=== PATIENT | male | born 1985 | race Caucasian/White ===

== ENCOUNTER 2017-10-13 17:34 | Emergency (ER) | payer SELFPAY ==
--- NOTE | 2017-10-13 18:20 | EDPHY ---
H & P Time Seen by Provider: 10/13/17 17:43 HPI/ROS: Chief complaint. Right testicle pain HPI. 32-year-old male presents emergency department with 3 day history of upper right testicle pain. He initially noted pressure sensation where the scrotum joins the body and then traced it down and felt that the tubes at the upper back of the testicle were tender. No swelling. No trauma. No urinary symptoms. No unprotected intercourse. Last intercourse was 2 weeks ago. No penile discharge. ROS Constitutional. no fever/chills, no weakness Eyes. no problems with vision ENT. no sore throat, no nasal drainage Cardiovascular. no chest pain Respiratory. no shortness of breath, no cough Abdominal. no abdominal pain, no nausea/vomiting, no diarrhea . Right testicle pain. No difficulty urinating MS. no calf pain/swelling, no neck/back pain, no joint pain Skin. no rash Lymph. no swollen glands Neuro. no headache, no dizziness, no difficulty walking or with speech Past Medical/Surgical History: Healthy Social History: Single, nonsmoker, no Smoking Status: Never smoked Physical Exam: General Appearance: Alert well-developed male mild distress vital signs stable Eyes: Pupils equal and round no pallor or injection. ENT, Mouth: Mucous membranes are moist. Respiratory: There are no retractions, lungs are clear to auscultation. Cardiovascular: Regular rate and rhythm. Gastrointestinal: Abdomen is soft and nontender, no masses, bowel sounds normal. Both testicles appear normal. Patient is circumcised. Tenderness to the upper posterior epididymis area on the right testicle. Cremasteric reflexes are present. Neurological: Awake and alert, sensory and motor exams grossly normal. Skin: Warm and dry, no rashes. Musculoskeletal: Neck is supple nontender. Extremities symmetrical, full range of motion. Psychiatric: Patient is oriented X 3, there is no agitation. Constitutional: Initial Vital Signs Temperature (C) 36.3 C 10/13/17 17:37 Heart Rate 82 10/13/17 17:37 Respiratory Rate 16 10/13/17 17:37 Blood Pressure 131/79 H 10/13/17 17:37 O2 Sat (%) 96 10/13/17 17:37 O2 Delivery Mode Room Air Allergies/Adverse Reactions: No Known Allergies Allergy (Unverified 10/13/17 17:36) Home Medications: Medication Instructions Recorded Doxycycline Hyclate 100 mg PO BID #20 tab 10/13/17 Medical Decision Making - Diagnostics Imaging Results: Ultrasound testicles shows slight hydrocele and varicocele but no evidence for torsion. Procedures: Ceftriaxone 250 mg IM ED Course/Re-evaluation: Re-evaluation at 7:40 p.m.. Patient is stable. He and I discussed imaging and lab results. We discussed treatment plan including criteria for return importance of follow-up further evaluation. He expresses understanding and agreement Differential Diagnosis: I considered urinary tract infection STD. Clinically the patient has epididymitis. - Data Points Laboratory Results: 10/13/17 18:55 Urine Color YELLOW Urine Appearance HAZY Urine pH 5.0 (5.0-7.5) Ur Specific [place] 1.013 (1.002-1.030) Urine Protein NEGATIVE (NEGATIVE) Urine Ketones NEGATIVE (NEGATIVE) Urine Blood NEGATIVE (NEGATIVE) Urine Nitrate NEGATIVE (NEGATIVE) Urine Bilirubin NEGATIVE (NEGATIVE) Urine Urobilinogen 4.0 EU H EU (0.2-1.0) Ur Leukocyte Esterase NEGATIVE (NEGATIVE) Urine RBC 3-5 /hpf H /hpf (0-3) Urine WBC 1-3 /hpf /hpf (0-3) Ur Epithelial Cells NONE SEEN /lpf /lpf (NONE-1+) Urine Bacteria TRACE /hpf H /hpf (NONE SEEN) Urine Mucus TRACE /lpf /lpf (NONE-1+) Urine Glucose NEGATIVE (NEGATIVE) Departure - Departure Disposition: Home, Routine, Self-Care Clinical Impression: Epididymitis Condition: Good Instructions: Epididymitis (ED) Additional Instructions: Scrotal support. Ibuprofen 600 mg every 6 hr. Doxycycline twice daily for 10 days. Return for worsening symptoms. Re-evaluation 3-4 days for continuing symptoms Referrals: NONE *PRIMARY CARE P,. [Primary Care Provider] - As per Instructions Alphonse Vincent MD [Medical Doctor] - 3-4 days, if not improved Prescriptions: Doxycycline Hyclate 100 mg PO BID #20 tab
[2017-10-13 20:25] VITALS: BP 141/73
== END 2017-10-13 20:24 | disposition home or self-care (01) ==
DX: N45.1 Epididymitis (principal); B96.89 Other specified bacterial agents as the cause of diseases classified elsewhere
CPT/HCPCS: J0696